=== PATIENT | female | born 1935 | race Caucasian/White ===

== ENCOUNTER 2017-04-13 17:33 | Inpatient (IN) | payer OTHER ==
[~2017-04-13] VITALS: Ht 165.1 cm; Wt 72.6 kg
[2017-04-13 18:35] LABS: BASOPHILS % (AUTO) 0.2 % (0.0-5.0); EOSINOPHILS % (AUTO) 0.1 % (0.0-8.0); HEMATOCRIT 35.2 % (36-48); LYMPHOCYTES % (AUTO) 6.5 % (21.0-51.0); MEAN CORPUSCULAR HEMOGLOBIN 30.3 pg (27.0-33.0); MEAN CORPUSCULAR HGB CONC 35.1 g/dL (32.0-36.0); MEAN CORPUSCULAR VOLUME 86.4 fL (79-99); MONOCYTES % (AUTO) 12.3 % (3.0-13.0); NEUTROPHILS % (AUTO) 80.9 % (40.0-77.0); PLATELET COUNT (AUTO) 191 K/uL (130-400); RED BLOOD CELL COUNT(AUTO) 4.08 MIL/uL (4.00-5.50); RED CELL DISTRIBUTION WIDTH 13.1 % (11.0-15.5); WHITE BLOOD COUNT (AUTO) 5.5 K/uL (4.8-10.8)
[2017-04-13] MEDS ORDERED: SODIUM CHLORIDE 0.9% 1000ML 1,000 ML IV ONE (18:42)
[2017-04-13 18:44] LABS: INR 0.92 (0.85-1.15); PROTHROMBIN TIME 9.7 SEC (9.6-11.6)
[2017-04-13 19:05] LABS: ALBUMIN 3.3 g/dL (3.5-5.0); BILIRUBIN,TOTAL 0.7 mg/dL (0.2-1.0); CREATININE 0.9 mg/dL (0.5-1.5); TOTAL PROTEIN, SERUM 6.5 g/dL (6.0-8.3)
[2017-04-13 19:09] LABS: PARTIAL THROMBOPLASTIN TIME 30.7 SEC (26.3-35.5)
[2017-04-13] MEDS ORDERED: ASPIRIN 325 MG TABLET ONE (20:05)
[2017-04-13] MEDS ORDERED: LEVOFLOXACIN 750 MG/D5W 150 ML 150 ML ONE (20:05)
[2017-04-13] MEDS ORDERED: SODIUM CHLORIDE 0.9% 1000ML 1,000 ML IV SCH (20:45)
[2017-04-13 23:02] LABS: APPEARANCE,URINE Clear (CLEAR); BILIRUBIN,URINE Negative (NEGATIVE); COLOR,URINE Yellow (YELLOW); GLUCOSE, URINE (UA) Negative (NEGATIVE); KETONES,URINE Negative (NEGATIVE); LEUKOCYTE ESTERASE ,URINE Moderate (NEGATIVE); NITRATE,URINE Negative (NEGATIVE); OCCULT BLOOD,URINE Negative (NEGATIVE); PH,URINE 6.5 (5.0-8.0); PROTEIN,URINE Trace (NEGATIVE); UROBILINOGEN,URINE 0.2 mg/dL (0.2-1.0)
[2017-04-13 23:18] LABS: BACTERIA,URINE None Seen /HPF (None Seen); MUCUS,URINE Moderate LPF (None Seen); RBC,URINE None Seen /HPF (0-1); SQUAMOUS EPITHELIAL CELL,UR Few /LPF (0-2)
[2017-04-14] MEDS ORDERED: POTASSIUM CHLORIDE 10% ELIXIR 20 MEQ/15 ML UDCUP PO PRN (00:45)
[2017-04-14] MEDS ORDERED: LIDOCAINE HCL-MPF 1% 2ML VIAL IVP PRN (00:45)
[2017-04-14] MEDS ORDERED: LACTULOSE 20 GM/30 ML UDCUP PO PRN ×2 (00:45→20:00)
[2017-04-14] MEDS ORDERED: ACETAMINOPHEN 325 MG TAB PO PRN ×2 (00:45)
[2017-04-14] MEDS ORDERED: LEVOFLOXACIN 500 MG/D5W 100 ML 100 ML IV SCH ×2 (00:45→20:00)
[2017-04-14] MEDS ORDERED: HYDRALAZINE HCL 20 MG/ML VIAL IV PRN (00:45)
[2017-04-14] MEDS ORDERED: POTASSIUM CHLORIDE 20MEQ/100ML 100 ML IV PRN (00:45)
[2017-04-14] MEDS ORDERED: SODIUM CHLORIDE 0.9% 1000ML 1,000 ML IV ONE (00:52)
[2017-04-14] MEDS ORDERED: CEFTRIAXONE SODIUM 1 GM ONE (00:52)
[2017-04-14 02:10] VITALS: BP 112/83
[2017-04-14 03:04] LABS: CHLORIDE,URINE RANDOM 24 mmol/L (110-250); POTASSIUM,URINE RANDOM 11 mmol/L (25-125); SODIUM,URINE RANDOM 5 mmol/l (40-220)
[2017-04-14 05:25] LABS: HEMATOCRIT 30.4 % (36-48); MEAN CORPUSCULAR HEMOGLOBIN 30.8 pg (27.0-33.0); MEAN CORPUSCULAR HGB CONC 35.7 g/dL (32.0-36.0); MEAN CORPUSCULAR VOLUME 86.5 fL (79-99); PLATELET COUNT (AUTO) 179 K/uL (130-400); RED BLOOD CELL COUNT(AUTO) 3.52 MIL/uL (4.00-5.50); WHITE BLOOD COUNT (AUTO) 5.3 K/uL (4.8-10.8)
[2017-04-14 06:23] LABS: CREATINE KINASE MB 3.1 ng/mL (0.5-3.6); CREATININE 0.8 mg/dL (0.5-1.5); THYROID STIMULATING HORMONE 2.53 uIU/mL (0.36-3.74); TROPONIN I 0.11 ng/mL (0.00-0.06)
[2017-04-14 06:28] LABS: POTASSIUM 2.9 mmol/L (3.5-5.1)
[2017-04-14 07:00] VITALS: BP 110/66
[2017-04-14] MEDS: FAMOTIDINE 20MG TAB 20 MG TAB PO SCH ×2 (08:14→21:37)
[2017-04-14] MEDS ORDERED: FAMOTIDINE 20MG TAB 20 MG TAB PO SCH (09:00)
[2017-04-14] MEDS ORDERED: KETOROLAC TROMETHAMINE 15MG/ML IV PRN (09:15)
[2017-04-14] MEDS ORDERED: MORPHINE SULFATE 2 MG/ML 1ML SYG IVP PRN (09:15)
[2017-04-14] MEDS ORDERED: ACETAMINOPHEN-CODEINE 300/30MG TAB PO PRN ×2 (09:15)
[2017-04-14] MEDS ORDERED: MAGNESIUM 2GM PREMIX 50ML 50 ML IV SCH (09:15)
[2017-04-14] MEDS ORDERED: NS-20 MEQ KCL 1000ML 1,000 ML IV SCH (09:15)
[2017-04-14] MEDS ORDERED: LOSA25TA21 PO (09:16)
[2017-04-14] MEDS ORDERED: THYR30TA2 PO (09:16)
[2017-04-14] MEDS ORDERED: CEFU250T87 PO (09:16)
[2017-04-14] MEDS ORDERED: CARV3.12 PO (09:16)
[2017-04-14] MEDS: POTASSIUM CHLORIDE 20 MEQ ERTAB PO PRN ×2 (10:20→12:46)
[2017-04-14 11:00] VITALS: BP 124/76
[2017-04-14 15:43] VITALS: BP 106/71
[2017-04-14] MEDS ORDERED: IPRATROPIUM/ALBUTEROL SULFATE 3 ML SOLUTION IH ONE (19:33)
[2017-04-14 20:00] VITALS: BP 114/74
[2017-04-14] MEDS ORDERED: DEXTROSE 50%-WATER 50 ML DISP.SYRIN IV PRN (20:00)
[2017-04-14] MEDS ORDERED: ONDANSETRON HCL 4 MG/2 ML VIAL IVP PRN (20:00)
[2017-04-14] MEDS ORDERED: CLONIDINE HCL 0.1 MG TABLET PO PRN (20:00)
[2017-04-14] MEDS ORDERED: GUAIFENESIN-DM 200/20 MG 10 ML PO PRN (20:00)
[2017-04-14] MEDS ORDERED: IPRATROPIUM/ALBUTEROL SULFATE 3 ML SOLUTION IH PRN (20:00)
[2017-04-14] MEDS ORDERED: GLUCAGON 1MG KIT 1 MG ML IM PRN (20:00)
[2017-04-14] MEDS ORDERED: POTASSIUM CHLORIDE 20 MEQ in SODIUM CHLORIDE 0.9% 1000ML 1,000 ML IV SCH (20:45)
[2017-04-14] MEDS ORDERED: CARVEDILOL 3.125 MG TABLET PO SCH (21:00)
[2017-04-14] MEDS: INSULIN R PO SSI SQ SCH (21:00)
[2017-04-14] MEDS: LOSARTAN 50 MG TABLET PO SCH (21:38)
[2017-04-14] MEDS: CARVEDILOL 3.125 MG TABLET PO SCH (21:38)
[2017-04-14] MEDS: CEFTRIAXONE SODIUM 1 GM IVP SCH (22:05)
[2017-04-14 23:10] VITALS: BP 137/87
[2017-04-15 04:07] LABS: MEAN CORPUSCULAR HEMOGLOBIN 32.7 pg (27.0-33.0); MEAN CORPUSCULAR HGB CONC 37.1 g/dL (32.0-36.0); MEAN CORPUSCULAR VOLUME 88.2 fL (79-99); NUCLEATED RED BLOOD CELLS 0.1 % (0.0-0.19); PLATELET COUNT (AUTO) 204 K/uL (130-400); RED BLOOD CELL COUNT(AUTO) 3.52 MIL/uL (4.00-5.50); RED CELL DISTRIBUTION WIDTH 13.1 % (11.0-15.5); WHITE BLOOD COUNT (AUTO) 4.3 K/uL (4.8-10.8)
[2017-04-15 04:18] VITALS: BP 132/80
[2017-04-15 04:21] LABS: CREATININE 0.9 mg/dL (0.5-1.5); POTASSIUM 4.2 mmol/L (3.5-5.1)
[2017-04-15 07:30] VITALS: BP 141/85
[2017-04-15] MEDS: INSULIN R PO SSI SQ SCH ×3 (07:30→16:30)
[2017-04-15] MEDS: CARVEDILOL 3.125 MG TABLET PO SCH ×2 (09:00→20:49)
[2017-04-15] MEDS: LOSARTAN 50 MG TABLET PO SCH ×2 (09:00→20:48)
[2017-04-15] MEDS: FAMOTIDINE 20MG TAB 20 MG TAB PO SCH ×2 (09:05→20:48)
[2017-04-15 11:00] VITALS: BP_SYST 141; BP_SYST 145; BP_DIAS 81; BP_DIAS 85
[2017-04-15] MEDS: METOCLOPRAMIDE 10 MG/2 ML VIAL IVP SCH ×2 (11:30→17:17)
[2017-04-15] MEDS: IPRATROPIUM/ALBUTEROL SULFATE 3 ML SOLUTION IH SCH ×2 (14:00→22:04)
[2017-04-15 16:00] VITALS: BP 145/85
[2017-04-15] MEDS: ENOXAPARIN SODIUM 40 MG/0.4 ML SYRINGE SQ SCH (17:45)
[2017-04-15] MEDS ORDERED: PHENOL 177 ML BOTTLE PO PRN (18:15)
[2017-04-15 19:00] VITALS: BP 126/68
[2017-04-15] MEDS: CEFTRIAXONE SODIUM 1 GM IVP SCH (21:52)
[2017-04-15] MEDS: MAG HYDROX/AL HYDROX/SIMETH ES 30 ML SUSP UDCUP PO PRN (21:52)
[2017-04-15 23:00] VITALS: BP 127/70
[2017-04-16 03:00] VITALS: BP 122/79
[2017-04-16 05:36] LABS: CREATININE 0.8 mg/dL (0.5-1.5); POTASSIUM 3.8 mmol/L (3.5-5.1)
[2017-04-16] MEDS: METOCLOPRAMIDE 10 MG/2 ML VIAL IVP SCH ×2 (06:36→17:25)
[2017-04-16] MEDS: IPRATROPIUM/ALBUTEROL SULFATE 3 ML SOLUTION IH SCH ×3 (07:16→21:44)
[2017-04-16 07:57] VITALS: BP 147/83
[2017-04-16] MEDS: THYROID 45 MG PO SCH (09:00)
[2017-04-16] MEDS: THYROID 30 MG PO SCH (09:00)
[2017-04-16] MEDS: ENOXAPARIN SODIUM 40 MG/0.4 ML SYRINGE SQ SCH ×2 (09:00→09:45)
[2017-04-16] MEDS: FAMOTIDINE 20MG TAB 20 MG TAB PO SCH ×2 (09:45→20:28)
[2017-04-16] MEDS: CARVEDILOL 3.125 MG TABLET PO SCH ×2 (09:45→20:26)
[2017-04-16] MEDS: LOSARTAN 50 MG TABLET PO SCH (09:47)
[2017-04-16 11:15] VITALS: BP 144/84
[2017-04-16] MEDS ORDERED: COMPOUND PO MISCELLANEOUS 1 EACH MISC MISC PRN (15:00)
[2017-04-16 15:52] VITALS: BP 120/60
[2017-04-16 19:00] VITALS: BP 163/101
[2017-04-16] MEDS: LOSARTAN PO SCH ×2 (20:26)
[2017-04-16] MEDS: MAG HYDROX/AL HYDROX/SIMETH ES 30 ML SUSP UDCUP PO PRN (20:28)
[2017-04-16] MEDS: CEFTRIAXONE SODIUM 1 GM IVP SCH (22:03)
[2017-04-16 23:00] VITALS: BP 144/87
[2017-04-17] VITALS (11 sets, daily range): BP systolic 117–180; BP diastolic 75–119
[2017-04-17] MEDS: METOCLOPRAMIDE 10 MG/2 ML VIAL IVP SCH (06:40)
[2017-04-17] MEDS: LOSARTAN PO SCH ×4 (08:03→22:11)
[2017-04-17] MEDS: CARVEDILOL 3.125 MG TABLET PO SCH (08:03)
[2017-04-17] MEDS ORDERED: ASPIRIN 81MG TAB.CHEW PO SCH (11:45)
[2017-04-17] MEDS: FAMOTIDINE 20MG TAB 20 MG TAB PO SCH ×2 (12:34→20:42)
[2017-04-17] MEDS: ENOXAPARIN SODIUM 40 MG/0.4 ML SYRINGE SQ SCH (12:35)
[2017-04-17] MEDS: METOPROLOL TARTRATE 1 MG/ML 5ML VIAL IV SCH (12:36)
[2017-04-17] MEDS ORDERED: CARVEDILOL 6.25 MG TABLET PO ONE (15:00)
[2017-04-17] MEDS: APIXABAN 5 MG TABLET PO SCH (20:41)
[2017-04-17] MEDS ORDERED: CARVEDILOL 3.125 MG TABLET PO SCH (21:00)
[2017-04-17] MEDS ORDERED: ZOLPIDEM TARTRATE 5 MG TAB PO SCH (21:00)
[2017-04-17] MEDS: CEFTRIAXONE SODIUM 1 GM IVP SCH (22:10)
[2017-04-18] VITALS (7 sets, daily range): BP systolic 104–153; BP diastolic 68–98
[2017-04-18 04:53] LABS: HEMATOCRIT 32.8 % (36-48); MEAN CORPUSCULAR HEMOGLOBIN 30.7 pg (27.0-33.0); MEAN CORPUSCULAR HGB CONC 34.3 g/dL (32.0-36.0); MEAN CORPUSCULAR VOLUME 89.4 fL (79-99); PLATELET COUNT (AUTO) 279 K/uL (130-400); RED BLOOD CELL COUNT(AUTO) 3.67 MIL/uL (4.00-5.50); RED CELL DISTRIBUTION WIDTH 13.5 % (11.0-15.5); WHITE BLOOD COUNT (AUTO) 5.1 K/uL (4.8-10.8)
[2017-04-18 05:12] LABS: CREATININE 0.9 mg/dL (0.5-1.5); POTASSIUM 3.4 mmol/L (3.5-5.1)
[2017-04-18 05:15] LABS: B-TYPE NATRIURETIC PEPTIDE 431 pg/mL (0-100)
[2017-04-18] MEDS: POTASSIUM CHLORIDE 20 MEQ ERTAB PO PRN (05:25)
[2017-04-18] MEDS ORDERED: CARVEDILOL 6.25 MG TABLET PO SCH (09:00)
[2017-04-18 20:21] LABS: APPEARANCE,URINE Cloudy (CLEAR); BILIRUBIN,URINE Negative (NEGATIVE); COLOR,URINE Yellow (YELLOW); GLUCOSE, URINE (UA) Negative (NEGATIVE); KETONES,URINE Negative (NEGATIVE); LEUKOCYTE ESTERASE ,URINE Trace (NEGATIVE); NITRATE,URINE Negative (NEGATIVE); OCCULT BLOOD,URINE Negative (NEGATIVE); PH,URINE 6.5 (5.0-8.0); PROTEIN,URINE Negative (NEGATIVE); UROBILINOGEN,URINE 0.2 mg/dL (0.2-1.0)
[2017-04-18 21:18] LABS: BACTERIA,URINE Rare /HPF (None Seen); MUCUS,URINE Rare LPF (None Seen); RBC,URINE 0-1 /HPF (0-1); SQUAMOUS EPITHELIAL CELL,UR Few /LPF (0-2)
[2017-04-18] MEDS ORDERED: DIPHENHYDRAMINE HCL 25 MG CAPSULE ONE (21:28)
[2017-04-18] MEDS ORDERED: DIPHENHYDRAMINE HCL 25 MG CAPSULE PO SCH (21:30)
[2017-04-18] MEDS: CARVEDILOL 6.25 MG TABLET PO SCH (21:34)
[2017-04-18] MEDS: APIXABAN 5 MG TABLET PO SCH (21:34)
[2017-04-18] MEDS: FAMOTIDINE 20MG TAB 20 MG TAB PO SCH (21:34)
[2017-04-18] MEDS: CEFTRIAXONE SODIUM 1 GM IVP SCH (21:34)
[2017-04-18] MEDS: LOSARTAN PO SCH ×2 (21:46)
[2017-04-18] MEDS: LORAZEPAM 2 MG/ML 1 ML VIAL IVP PRN (23:59)
[2017-04-19 03:25] VITALS: BP 100/64
[2017-04-19 05:49] LABS: HEMATOCRIT 30.4 % (36-48); MEAN CORPUSCULAR HEMOGLOBIN 31.4 pg (27.0-33.0); MEAN CORPUSCULAR HGB CONC 35.5 g/dL (32.0-36.0); MEAN CORPUSCULAR VOLUME 88.6 fL (79-99); PLATELET COUNT (AUTO) 309 K/uL (130-400); RED BLOOD CELL COUNT(AUTO) 3.43 MIL/uL (4.00-5.50); RED CELL DISTRIBUTION WIDTH 13.3 % (11.0-15.5); WHITE BLOOD COUNT (AUTO) 5.6 K/uL (4.8-10.8)
[2017-04-19 05:56] LABS: BAND NEUTROPHILS % (MANUAL) 1 % (0-2); EOSINOPHILS % (MANUAL) 8 % (1-6); LYMPHOCYTES % (MANUAL) 5 % (22-44); MAN.DIFF COMMENT-IMPRESSION MANUAL DIFFERENTIAL; MONOCYTES % (MANUAL) 13 % (2-9); PLATELET MORPHOLOGY COMMENT ADEQUATE; SEGMENTED NEUTROPHILS % 73 % (40-70)
[2017-04-19 06:03] LABS: CREATININE 1.1 mg/dL (0.5-1.5); MAGNESIUM 2.1 mg/dL (1.80-2.40); POTASSIUM 3.9 mmol/L (3.5-5.1)
[2017-04-19 07:00] VITALS: BP 91/41
[2017-04-19] MEDS: LOSARTAN PO SCH ×4 (09:00→21:17)
[2017-04-19] MEDS: CARVEDILOL 6.25 MG TABLET PO SCH ×2 (09:00→21:16)
[2017-04-19] MEDS: THYROID 45 MG PO SCH (09:00)
[2017-04-19] MEDS: APIXABAN 5 MG TABLET PO SCH ×2 (09:50→21:15)
[2017-04-19] MEDS: FAMOTIDINE 20MG TAB 20 MG TAB PO SCH ×2 (09:50→21:15)
[2017-04-19 11:00] VITALS: BP 106/60
[2017-04-19] MEDS: METOPROLOL TARTRATE 1 MG/ML 5ML VIAL IV SCH (12:15)
[2017-04-19 16:09] VITALS: BP 124/65
[2017-04-19 19:18] VITALS: BP 117/74
[2017-04-19] MEDS: CEFTRIAXONE SODIUM 1 GM IVP SCH (21:16)
[2017-04-19] MEDS ORDERED: ZOLPIDEM TARTRATE 5 MG TAB ONE (22:57)
[2017-04-19 23:00] VITALS: BP 113/75
[2017-04-19] MEDS ORDERED: ZOLPIDEM TARTRATE 5 MG TAB PO PRN (23:00)
[2017-04-20] VITALS (7 sets, daily range): BP systolic 95–136; BP diastolic 60–78
[2017-04-20] MEDS: LORAZEPAM 2 MG/ML 1 ML VIAL IVP PRN (00:45)
[2017-04-20] MEDS: THYROID 45 MG PO SCH (07:58)
[2017-04-20] MEDS: LOSARTAN PO SCH ×6 (09:00→21:00)
[2017-04-20] MEDS: CARVEDILOL 6.25 MG TABLET PO SCH ×3 (09:00→21:00)
[2017-04-20] MEDS: THYROID 30 MG PO SCH (09:00)
[2017-04-20] MEDS: APIXABAN 5 MG TABLET PO SCH ×2 (11:39→21:04)
[2017-04-20] MEDS: FAMOTIDINE 20MG TAB 20 MG TAB PO SCH ×2 (11:39→21:04)
[2017-04-20] MEDS: METOPROLOL TARTRATE 1 MG/ML 5ML VIAL IV SCH (11:40)
[2017-04-20] MEDS: CEFTRIAXONE SODIUM 1 GM IVP SCH (21:05)
[2017-04-21 04:00] VITALS: BP 106/68
[2017-04-21 07:50] VITALS: BP 113/71
[2017-04-21] MEDS ORDERED: APIX5TAB PO (10:05)
[2017-04-21] MEDS ORDERED: CARV6.2579 PO (10:05)
[2017-04-21 10:21] VITALS: BP 113/71
[2017-04-21] MEDS: APIXABAN 5 MG TABLET PO SCH (10:21)
[2017-04-21] MEDS: CARVEDILOL 6.25 MG TABLET PO SCH (10:21)
[2017-04-21] MEDS: FAMOTIDINE 20MG TAB 20 MG TAB PO SCH (10:21)
== END 2017-04-21 11:40 | disposition home health service (06) | DRG 690 ==
LOC: EDH 17:33 → OBSVTOIN 20:14 → EDHIP 20:14 → 3DH 04-14 01:10
PROVIDERS: ADMIT Internal Medicine; ATTEND Internal Medicine
DX: N39.0 Urinary tract infection, site not specified (principal); E87.1 Hypo-osmolality and hyponatremia; I48.91 Unspecified atrial fibrillation; M62.82 Rhabdomyolysis; E86.0 Dehydration; I82.442 Acute embolism and thrombosis of left tibial vein; E03.9 Hypothyroidism, unspecified; E16.2 Hypoglycemia, unspecified; E78.5 Hyperlipidemia, unspecified; E87.6 Hypokalemia; I10 Essential (primary) hypertension; I34.0 Nonrheumatic mitral (valve) insufficiency; Z79.01 Long term (current) use of anticoagulants; Z79.899 Other long term (current) drug therapy; Z91.041 Radiographic dye allergy status; Z88.2 Allergy status to sulfonamides; Z88.8 Allergy status to other drugs, medicaments and biological substances
CPT/HCPCS: 36415; 71045; 71046; 80048; 80051; 80053; 81001; 82550; 82553; 83735; 83874; 83880; 83930; 83935; 84132; 84443; 84484; 84588; 85025; 85027; 85610; 85730; 87040; 93005; 93970; 94640; 94664; 99291; A4218; J0360; J0696; J1650; J1956; J2060; J2405; J2765; J3480; J3490; J7030; Q0163

== ENCOUNTER 2018-06-30 14:37 | Emergency (ER) | payer OTHER ==
[~2018-06-30 14:37] MED LIST: APIX5TAB PO; CARV6.2579 PO; LOSA25TA41 PO; THYR30TA2 PO
[2018-06-30] MEDS ORDERED: TETANUS/DIPHTHERIA TOXOID [ADULT] 0.5 ML VIAL IM ONE (15:13)
[2018-06-30] MEDS ORDERED: HYDRALAZINE HCL 20 MG/ML VIAL ONE (15:13)
[2018-06-30] MEDS ORDERED: ACETAMINOPHEN-CODEINE 300/30MG TAB ONE (15:13)
[2018-06-30] MEDS ORDERED: OCTYL 2-CYANOACRYLATE 1 EACH TP ONE (15:14)
[2018-06-30] MEDS ORDERED: LOSARTAN 50 MG TABLET ONE (15:42)
== END 2018-06-30 16:23 | disposition home or self-care (01) ==
LOC: EDH 14:37
DX: S01.01XA Laceration without foreign body of scalp, initial encounter (principal); S01.112A Laceration without foreign body of left eyelid and periocular area, initial encounter; S80.02XA Contusion of left knee, initial encounter; I10 Essential (primary) hypertension; E07.9 Disorder of thyroid, unspecified; Z91.041 Radiographic dye allergy status; Z88.2 Allergy status to sulfonamides; Z79.899 Other long term (current) drug therapy; W18.39XA Other fall on same level, initial encounter; Y93.01 Activity, walking, marching and hiking; Y92.89 Other specified places as the place of occurrence of the external cause; Y99.8 Other external cause status
CPT/HCPCS: 12001; 12051; 36415 ×2; 70450; 72125; 73562; 85025; 86850; 86900; 86901; 90471; 90714; 93005; 96374; 99285; J0360

== ENCOUNTER 2018-06-30 21:11 | Emergency (ER) | payer OTHER ==
[2018-06-30] MEDS ORDERED: LIDOCAINE HCL 1% 20 ML VIAL ONE (22:07)
[2018-06-30 23:35] LABS: BASOPHILS % (AUTO) 0.3 % (0.0-5.0); HEMATOCRIT 27.7 % (36-48); LYMPHOCYTES % (AUTO) 3.2 % (21.0-51.0); MEAN CORPUSCULAR HEMOGLOBIN 29.1 pg (27.0-33.0); MEAN CORPUSCULAR HGB CONC 33.9 g/dL (32.0-36.0); MEAN CORPUSCULAR VOLUME 85.9 fL (79-99); MONOCYTES % (AUTO) 4.8 % (3.0-13.0); NEUTROPHILS % (AUTO) 91.7 % (40.0-77.0); PLATELET COUNT (AUTO) 289 K/uL (130-400); RED BLOOD CELL COUNT(AUTO) 3.22 MIL/uL (4.00-5.50); RED CELL DISTRIBUTION WIDTH 14.3 % (11.0-15.5); WHITE BLOOD COUNT (AUTO) 10.5 K/uL (4.8-10.8)
== END 2018-07-01 00:30 | disposition home or self-care (01) ==
LOC: EDH 21:11
DX: S01.112A Laceration without foreign body of left eyelid and periocular area, initial encounter (principal); I10 Essential (primary) hypertension; E78.5 Hyperlipidemia, unspecified; Z88.2 Allergy status to sulfonamides; Z91.041 Radiographic dye allergy status; X58.XXXA Exposure to other specified factors, initial encounter; Y93.89 Activity, other specified; Y92.89 Other specified places as the place of occurrence of the external cause; Y99.8 Other external cause status
CPT/HCPCS: 12051; 36415; 85025

== ENCOUNTER 2018-07-14 10:52 | Emergency (ER) | payer OTHER | END 2018-07-14 13:11 | disposition home or self-care (01) | LOC: EDH 10:52 | DX: S01.81XA Laceration without foreign body of other part of head, initial encounter (principal); I10 Essential (primary) hypertension; E07.9 Disorder of thyroid, unspecified; Z88.2 Allergy status to sulfonamides; Z91.041 Radiographic dye allergy status; X58.XXXA Exposure to other specified factors, initial encounter; Y93.89 Activity, other specified; Y92.89 Other specified places as the place of occurrence of the external cause; Y99.8 Other external cause status | CPT/HCPCS: 12011 ==

== ENCOUNTER → 2018-09-17 | Outpatient (CLI) | payer OTHER | END | disposition home or self-care (01) | LOC: RAH 10:19 | PROVIDERS: ATTEND Internal Medicine Cardiovascular Disease | DX: I08.1 Rheumatic disorders of both mitral and tricuspid valves (principal); I50.30 Unspecified diastolic (congestive) heart failure | CPT/HCPCS: 93306 ==

== ENCOUNTER → 2018-11-26 | Outpatient (CLI) | payer OTHER | END | disposition home or self-care (01) | LOC: SHCH 12:53 | PROVIDERS: ATTEND Internal Medicine Cardiovascular Disease | DX: I11.9 Hypertensive heart disease without heart failure (principal); I08.1 Rheumatic disorders of both mitral and tricuspid valves; I25.10 Atherosclerotic heart disease of native coronary artery without angina pectoris | CPT/HCPCS: 93306 ==